=== PATIENT | female | born 1945 | race Caucasian/White ===

== ENCOUNTER 2017-03-09 06:17 | Day surgery (SDC) | payer OTHER, MEDICAID ==
[~2017-03-09] VITALS: Ht 30.5 cm; Wt 70.8 kg
[~2017-03-09 06:17] MED LIST: ACETAMINOPHEN 325 MG TAB PO PRN; ATOR1TAB21 PO; EYE5SOL OD; OMEP40CA2 PO
[2017-03-09] MEDS ORDERED: LIDOCAINE 2% W/EPIN INJ 20ML **PRES FREE As Ordered ONE (06:44)
[2017-03-09] MEDS ORDERED: mitoMYcin 0.2 MG/VIAL KIT FOR OPHTHALMIC USE (J7315 PER 0.2MG) As Ordered ONE (06:44)
[2017-03-09] MEDS ORDERED: POVIDONE-IODINE 5% OPHTH PREP SOL 30ML As Ordered ONE (06:45)
[2017-03-09] MEDS ORDERED: TOBRADEX OPHTH OINT 3.5 GM As Ordered ONE (06:45)
[2017-03-09] MEDS ORDERED: LIDOCAINE 3.5 % 1ML OPHTH TOPICAL GEL As Ordered ONE (06:55)
[2017-03-09] MEDS ORDERED: BSS with VANC/TOB/EPI for EYE CASES IR ONE (07:00)
[2017-03-09] MEDS ORDERED: PHENYLEPHRINE 2.5% OPHTH SOL 2ML XX ONE (07:00)
[2017-03-09] MEDS ORDERED: OFLOXACIN 0.3 % (OCUFLOX) OPTH SOL 5ML XX ONE (07:00)
[2017-03-09] MEDS ORDERED: TROPICAMIDE 1% OPHTH SOLN 2ML XX ONE (07:00)
[2017-03-09] MEDS ORDERED: CYCLOPENTOLATE 2% OPHTH SOLN 2ML BTL XX ONE (07:00)
[2017-03-09] MEDS ORDERED: PROPARACAINE 0.5% OPHTH SOL 15ML OD PRN (07:01)
[2017-03-09] MEDS ORDERED: fentaNYL 100 MCG/2 ML INJECTION (J3010) As Ordered ONE (07:12)
[2017-03-09] MEDS ORDERED: MIDAZOLAM INJ 2 MG/2 ML VIAL (J2250) As Ordered ONE (07:12)
[2017-03-09] MEDS ORDERED: LIDOCAINE 3.5 % 1ML OPHTH TOPICAL GEL OU ONE (07:30)
[2017-03-09] MEDS ORDERED: LIDOCAINE 1% MDV 20ML VIAL SC ONE (07:30)
[2017-03-09] MEDS ORDERED: LR 500 ML IV ONE (07:30)
[2017-03-09] MEDS ORDERED: HEALON DUET (HEALON 10MG/ML 0.55ML & HEALON ENDOCOAT 30MG/ML 0.85ML) As Ordered ONE (08:10)
[2017-03-09] MEDS ORDERED: AcetaZOLAMIDE 500 MG ER CAP PO ONE (09:00)
[2017-03-09] MEDS ORDERED: KETOROLAC 0.5% OPHTH SOLN OD ONE (09:00)
[2017-03-09] MEDS ORDERED: TRIMETHOBENZAMIDE 300 MG CAP PO PRN (09:00)
[2017-03-09 10:05] VITALS: BP 154/76
--- NOTE | 2017-03-10 07:22 | RO ---
DATE OF PROCEDURE: 03/09/2017 PREPROCEDURE DIAGNOSIS: Uncontrolled glaucoma. POSTPROCEDURE DIAGNOSIS: Uncontrolled glaucoma. PROCEDURE: Placement of the Ahmed valve, serial number [id number], lot number [id number]. SURGEON: Dr. Satish Tong. VEST MAKER: None. COMPLICATIONS: None. ANESTHESIA: ESTIMATED BLOOD LOSS: PROCEDURE IN DETAIL: After informed consent was obtained, it was decided to proceed with the Ahmed valve as opposed to the Express shunt with ECP considering patient was on Diamox and refractory glaucoma. After signing the consent, the patient was brought to the operating room and laid in supine position. The right eye was prepped and draped in a sterile fashion for ophthalmic surgery. Lid speculum was placed. #7-0 Vicryl suture was used to move the eye inferiorly and nasally following which subconjunctival peritomy was done for six clock hours between 9-o'clock and 3-o'clock. This dissection was carried out posteriorly in the superotemporal quadrant. Hemostasis was obtained as necessary. Cornea was marked 9 mm behind the limbus. Ahmed valve was primed and then sutured in place 9 mm away from the limbus with #10-0 Nylon sutures. Scleral tunnel was then created with a curved blade starting 6 mm behind the limbus and entering the anterior chamber. So the lens of the Ahmed valve tube was then trimmed to the right size. It was introduced through the scleral tunnel into the anterior chamber and secured in place using #10-0 Nylon suture. Conjunctiva was then closed using #8-0 Vicryl sutures and #10-0 Nylon sutures and was noted to be water tight. At the end of the case, a small amount of Healon was inserted. Eye was patched with TobraDex and patient returned to recovery room in stable condition after lid speculum was removed.
== END 2017-03-09 10:07 | disposition home or self-care (01) ==
LOC: M SDC 06:17
PROVIDERS: ATTEND Ophthalmology
DX: H40.9 Unspecified glaucoma (principal); E78.00 Pure hypercholesterolemia, unspecified; K21.9 Gastro-esophageal reflux disease without esophagitis; C44.90 Unspecified malignant neoplasm of skin, unspecified; Z79.899 Other long term (current) drug therapy; Z78.0 Asymptomatic menopausal state; Z90.710 Acquired absence of both cervix and uterus
CPT/HCPCS: 66183; J2250; J3010; J7315

== ENCOUNTER 2017-08-22 23:57 | Inpatient (IN) | payer MEDICAID, OTHER ==
[2017-08-23] MEDS ORDERED: ACETAMINOPHEN TAB 650MG DOSE (2X325MG) PO (01:45)
[2017-08-23] MEDS ORDERED: MOM 30ML SUSPENSION UDC PO (01:45)
[2017-08-23] MEDS ORDERED: MAALOX 30 ML SUSP *UDC PO (01:45)
[2017-08-23] MEDS ORDERED: traZODone 50 MG TAB PO (01:45)
[2017-08-23] MEDS: PALIPERIDONE 3 MG ER TAB (INVEGA) PO (21:10)
[2017-08-24 07:01] LABS: HEMOGLOBIN 11.3 g/dl (12.0-16.0); MEAN CORPUSCULAR HEMOGLOBIN 30.9 pg (27.0-33.0); MEAN CORPUSCULAR HGB CONC 34.2 g/dl (32.0-36.5); MEAN CORPUSCULAR VOLUME 90.2 fl (80.0-96.0); PLATELET COUNT, AUTOMATED 244 10^3/uL (150-450); RED BLOOD COUNT 3.66 10^6/uL (4.00-5.40); WHITE BLOOD COUNT 4.8 10^3/uL (4.0-10.0)
[2017-08-24 07:28] LABS: ALBUMIN 2.6 GM/DL (3.2-5.2); ALBUMIN/GLOBULIN RATIO 0.74 (1.00-1.93); ALKALINE PHOSPHATASE 88 U/L (45-117); ALT/SGPT 8 U/L (12-78); ANION GAP 10 MEQ/L (8-16); AST/SGOT 10 U/L (7-37); BILIRUBIN,TOTAL 0.7 MG/DL (0.2-1.0); BLOOD UREA NITROGEN 5 MG/DL (7-18); CALCIUM LEVEL 8.6 MG/DL (8.8-10.2); CARBON DIOXIDE LEVEL 26 MEQ/L (21-32); CHLORIDE LEVEL 106 MEQ/L (98-107); CREATININE FOR GFR 0.35 MG/DL (0.55-1.30); GLOMERULAR FILTRATION RATE > 60.0 (>39); GLUCOSE, FASTING 103 MG/DL (70-100); POTASSIUM SERUM 3.4 MEQ/L (3.5-5.1); SODIUM LEVEL 142 MEQ/L (136-145); TOTAL PROTEIN 6.1 GM/DL (6.4-8.2)
[2017-08-24] MEDS: PALIPERIDONE 3 MG ER TAB (INVEGA) PO ×2 (11:45→20:35)
[2017-08-25] MEDS: METOPROLOL TART 12.5 MG PER 1/2 TAB PO ×2 (09:00→20:43)
[2017-08-25] MEDS: PALIPERIDONE 3 MG ER TAB (INVEGA) PO ×2 (09:22→20:45)
[2017-08-25 09:48] LABS: HEMATOCRIT 32.5 % (36.0-47.0); HEMOGLOBIN 11.1 g/dl (12.0-16.0); MEAN CORPUSCULAR HEMOGLOBIN 31.3 pg (27.0-33.0); MEAN CORPUSCULAR HGB CONC 34.2 g/dl (32.0-36.5); MEAN CORPUSCULAR VOLUME 91.5 fl (80.0-96.0); PLATELET COUNT, AUTOMATED 235 10^3/uL (150-450); RED BLOOD COUNT 3.55 10^6/uL (4.00-5.40); WHITE BLOOD COUNT 6.3 10^3/uL (4.0-10.0)
[2017-08-25 10:13] LABS: ALBUMIN 2.7 GM/DL (3.2-5.2); ALBUMIN/GLOBULIN RATIO 0.79 (1.00-1.93); ALKALINE PHOSPHATASE 88 U/L (45-117); ALT/SGPT 10 U/L (12-78); ANION GAP 7 MEQ/L (8-16); AST/SGOT 13 U/L (7-37); BILIRUBIN,TOTAL 0.6 MG/DL (0.2-1.0); BLOOD UREA NITROGEN 6 MG/DL (7-18); CALCIUM LEVEL 8.5 MG/DL (8.8-10.2); CARBON DIOXIDE LEVEL 29 MEQ/L (21-32); CHLORIDE LEVEL 106 MEQ/L (98-107); CREATININE FOR GFR 0.46 MG/DL (0.55-1.30); GLOMERULAR FILTRATION RATE > 60.0 (>39); GLUCOSE, FASTING 105 MG/DL (70-100); POTASSIUM SERUM 3.7 MEQ/L (3.5-5.1); SODIUM LEVEL 142 MEQ/L (136-145); TOTAL PROTEIN 6.1 GM/DL (6.4-8.2)
[2017-08-25] MEDS ORDERED: traZODone 25MG PER 1/2 TABLET PO (11:15)
[2017-08-25] MEDS ORDERED: OMEPRAZOLE 20 MG CAP PO (12:15)
[2017-08-25] MEDS: miSOPROStol 100 MCG TAB (S0191) PO ×2 (16:56→20:45)
[2017-08-25] MEDS: BRINZOLAMIDE 1 % OPHTH SUSP (AZOPT) 10ML OU ×2 (16:56→20:45)
[2017-08-25] MEDS: ATORVASTATIN 20 MG TAB PO (16:56)
[2017-08-26 07:32] LABS: ANION GAP 8 MEQ/L (8-16); BLOOD UREA NITROGEN 8 MG/DL (7-18); CALCIUM LEVEL 8.4 MG/DL (8.8-10.2); CARBON DIOXIDE LEVEL 27 MEQ/L (21-32); CHLORIDE LEVEL 106 MEQ/L (98-107); CREATININE FOR GFR 0.34 MG/DL (0.55-1.30); GLOMERULAR FILTRATION RATE > 60.0 (>39); GLUCOSE, FASTING 88 MG/DL (70-100); POTASSIUM SERUM 3.8 MEQ/L (3.5-5.1); SODIUM LEVEL 141 MEQ/L (136-145)
[2017-08-26] MEDS: ATORVASTATIN 20 MG TAB PO (08:52)
[2017-08-26] MEDS: BRINZOLAMIDE 1 % OPHTH SUSP (AZOPT) 10ML OU ×2 (08:52→21:43)
[2017-08-26] MEDS: miSOPROStol 100 MCG TAB (S0191) PO ×3 (08:52→21:43)
[2017-08-26] MEDS: PALIPERIDONE 3 MG ER TAB (INVEGA) PO ×2 (08:52→21:43)
[2017-08-26] MEDS: METOPROLOL TART 12.5 MG PER 1/2 TAB PO ×2 (08:52→21:45)
[2017-08-26] MEDS: QUEtiapine FUMARATE 50 MG TAB PO (21:43)
[2017-08-27] MEDS: METOPROLOL TART 12.5 MG PER 1/2 TAB PO ×2 (09:47→20:33)
[2017-08-27] MEDS: miSOPROStol 100 MCG TAB (S0191) PO ×3 (09:47→20:34)
[2017-08-27] MEDS: ATORVASTATIN 20 MG TAB PO (09:47)
[2017-08-27] MEDS: BRINZOLAMIDE 1 % OPHTH SUSP (AZOPT) 10ML OU ×2 (09:47→20:33)
[2017-08-27] MEDS: QUEtiapine FUMARATE 100 MG TAB PO (20:32)
[2017-08-28] MEDS: miSOPROStol 100 MCG TAB (S0191) PO ×3 (08:21→21:41)
[2017-08-28] MEDS: ATORVASTATIN 20 MG TAB PO (08:21)
[2017-08-28] MEDS: METOPROLOL TART 12.5 MG PER 1/2 TAB PO ×2 (08:22→21:42)
[2017-08-28] MEDS: BRINZOLAMIDE 1 % OPHTH SUSP (AZOPT) 10ML OU ×2 (08:22→21:41)
[2017-08-28] MEDS: QUEtiapine FUMARATE 100 MG TAB PO (21:41)
[2017-08-29] MEDS: BRINZOLAMIDE 1 % OPHTH SUSP (AZOPT) 10ML OU ×2 (09:29→21:33)
[2017-08-29] MEDS: ATORVASTATIN 20 MG TAB PO (09:29)
[2017-08-29] MEDS: miSOPROStol 100 MCG TAB (S0191) PO ×3 (09:29→21:32)
[2017-08-29] MEDS: METOPROLOL TART 12.5 MG PER 1/2 TAB PO ×2 (09:37→21:33)
[2017-08-29] MEDS: QUEtiapine FUMARATE 50 MG TAB PO (21:32)
[2017-08-30] MEDS: METOPROLOL TART 12.5 MG PER 1/2 TAB PO ×2 (10:21→21:20)
[2017-08-30] MEDS: ATORVASTATIN 20 MG TAB PO (10:21)
[2017-08-30] MEDS: miSOPROStol 100 MCG TAB (S0191) PO ×3 (10:21→21:20)
[2017-08-30] MEDS: BRINZOLAMIDE 1 % OPHTH SUSP (AZOPT) 10ML OU ×2 (10:21→21:24)
[2017-08-31] MEDS: METOPROLOL TART 12.5 MG PER 1/2 TAB PO ×2 (08:21→20:45)
[2017-08-31] MEDS: ATORVASTATIN 20 MG TAB PO (08:21)
[2017-08-31] MEDS: miSOPROStol 100 MCG TAB (S0191) PO ×3 (08:21→20:46)
[2017-08-31] MEDS: BRINZOLAMIDE 1 % OPHTH SUSP (AZOPT) 10ML OU ×2 (08:21→20:44)
[2017-09-01] MEDS: METOPROLOL TART 12.5 MG PER 1/2 TAB PO ×2 (09:02→20:53)
[2017-09-01] MEDS: ATORVASTATIN 20 MG TAB PO (09:02)
[2017-09-01] MEDS: miSOPROStol 100 MCG TAB (S0191) PO ×3 (09:02→20:53)
[2017-09-01] MEDS: BRINZOLAMIDE 1 % OPHTH SUSP (AZOPT) 10ML OU ×2 (09:02→20:53)
[2017-09-01] MEDS: QUEtiapine FUMARATE 50 MG TAB PO (20:53)
[2017-09-02] MEDS: BRINZOLAMIDE 1 % OPHTH SUSP (AZOPT) 10ML OU ×2 (09:12→21:07)
[2017-09-02] MEDS: ATORVASTATIN 20 MG TAB PO (09:13)
[2017-09-02] MEDS: METOPROLOL TART 12.5 MG PER 1/2 TAB PO ×2 (09:13→21:08)
[2017-09-02] MEDS: miSOPROStol 100 MCG TAB (S0191) PO ×3 (09:13→21:08)
[2017-09-02] MEDS: QUEtiapine FUMARATE 50 MG TAB PO (21:08)
[2017-09-03] MEDS: miSOPROStol 100 MCG TAB (S0191) PO ×3 (09:56→21:22)
[2017-09-03] MEDS: BRINZOLAMIDE 1 % OPHTH SUSP (AZOPT) 10ML OU ×2 (09:56→21:26)
[2017-09-03] MEDS: ATORVASTATIN 20 MG TAB PO (09:56)
[2017-09-03] MEDS: METOPROLOL TART 12.5 MG PER 1/2 TAB PO ×2 (09:56→21:23)
[2017-09-03] MEDS: QUEtiapine FUMARATE 50 MG TAB PO (21:22)
[2017-09-04] MEDS: BRINZOLAMIDE 1 % OPHTH SUSP (AZOPT) 10ML OU ×2 (09:08→21:00)
[2017-09-04] MEDS: METOPROLOL TART 12.5 MG PER 1/2 TAB PO ×2 (09:09→21:00)
[2017-09-04] MEDS: ATORVASTATIN 20 MG TAB PO (09:10)
[2017-09-04] MEDS: miSOPROStol 100 MCG TAB (S0191) PO ×3 (09:10→21:00)
[2017-09-04] MEDS: QUEtiapine FUMARATE 50 MG TAB PO (21:00)
[2017-09-05 07:44] LABS: HEMATOCRIT 35.3 % (36.0-47.0); HEMOGLOBIN 11.7 g/dl (12.0-15.5); MEAN CORPUSCULAR HEMOGLOBIN 30.1 pg (27.0-33.0); MEAN CORPUSCULAR HGB CONC 33.1 g/dl (32.0-36.5); MEAN CORPUSCULAR VOLUME 90.7 fl (80.0-96.0); PLATELET COUNT, AUTOMATED 253 10^3/uL (150-450); RED BLOOD COUNT 3.89 10^6/uL (4.00-5.40); RED CELL DISTRIBUTION WIDTH 13.6 % (11.5-14.5); WHITE BLOOD COUNT 5.5 10^3/uL (4.0-10.0)
[2017-09-05] MEDS: miSOPROStol 100 MCG TAB (S0191) PO ×3 (08:07→23:34)
[2017-09-05] MEDS: BRINZOLAMIDE 1 % OPHTH SUSP (AZOPT) 10ML OU ×2 (08:07→23:35)
[2017-09-05] MEDS: ATORVASTATIN 20 MG TAB PO (08:08)
[2017-09-05] MEDS: METOPROLOL TART 12.5 MG PER 1/2 TAB PO ×2 (08:08→23:46)
[2017-09-05 08:18] LABS: ALBUMIN/GLOBULIN RATIO 0.91 (1.00-1.93); ALKALINE PHOSPHATASE 95 U/L (45-117); ALT/SGPT 10 U/L (12-78); ANION GAP 7 MEQ/L (8-16); AST/SGOT 12 U/L (7-37); BILIRUBIN,TOTAL 0.7 MG/DL (0.2-1.0); BLOOD UREA NITROGEN 8 MG/DL (7-18); CALCIUM LEVEL 8.7 MG/DL (8.8-10.2); CARBON DIOXIDE LEVEL 27 MEQ/L (21-32); CHLORIDE LEVEL 107 MEQ/L (98-107); GLOMERULAR FILTRATION RATE > 60.0 (>39); GLUCOSE, FASTING 91 MG/DL (70-100); POTASSIUM SERUM 3.8 MEQ/L (3.5-5.1); SODIUM LEVEL 141 MEQ/L (136-145); TOTAL PROTEIN 6.3 GM/DL (6.4-8.2)
[2017-09-05] MEDS: QUEtiapine FUMARATE 100 MG TAB PO (23:34)
[2017-09-06] MEDS: BRINZOLAMIDE 1 % OPHTH SUSP (AZOPT) 10ML OU ×2 (09:40→21:29)
[2017-09-06] MEDS: ATORVASTATIN 20 MG TAB PO (09:40)
[2017-09-06] MEDS: miSOPROStol 100 MCG TAB (S0191) PO ×3 (09:40→21:30)
[2017-09-06] MEDS: METOPROLOL TART 12.5 MG PER 1/2 TAB PO ×2 (09:40→21:00)
[2017-09-06] MEDS: QUEtiapine FUMARATE 100 MG TAB PO (21:30)
[2017-09-07] MEDS: ATORVASTATIN 20 MG TAB PO (09:42)
[2017-09-07] MEDS: BRINZOLAMIDE 1 % OPHTH SUSP (AZOPT) 10ML OU ×2 (09:42→20:59)
[2017-09-07] MEDS: METOPROLOL TART 12.5 MG PER 1/2 TAB PO ×2 (09:51→20:58)
[2017-09-07] MEDS: miSOPROStol 100 MCG TAB (S0191) PO ×3 (09:51→20:58)
[2017-09-07] MEDS: QUEtiapine FUMARATE 100 MG TAB PO (20:58)
[2017-09-08] MEDS: ATORVASTATIN 20 MG TAB PO (08:37)
[2017-09-08] MEDS: METOPROLOL TART 12.5 MG PER 1/2 TAB PO ×2 (08:37→20:24)
[2017-09-08] MEDS: BRINZOLAMIDE 1 % OPHTH SUSP (AZOPT) 10ML OU ×2 (08:37→20:24)
[2017-09-08] MEDS: miSOPROStol 100 MCG TAB (S0191) PO ×3 (08:37→20:23)
[2017-09-08] MEDS: QUEtiapine FUMARATE 100 MG TAB PO (20:23)
[2017-09-09] MEDS: ATORVASTATIN 20 MG TAB PO (09:17)
[2017-09-09] MEDS: BRINZOLAMIDE 1 % OPHTH SUSP (AZOPT) 10ML OU ×2 (09:17→20:31)
[2017-09-09] MEDS: METOPROLOL TART 12.5 MG PER 1/2 TAB PO ×2 (09:17→20:31)
[2017-09-09] MEDS: miSOPROStol 100 MCG TAB (S0191) PO ×3 (09:17→20:30)
[2017-09-09] MEDS: QUEtiapine FUMARATE 100 MG TAB PO (20:30)
[2017-09-10] MEDS: BRINZOLAMIDE 1 % OPHTH SUSP (AZOPT) 10ML OU ×2 (08:41→20:35)
[2017-09-10] MEDS: ATORVASTATIN 20 MG TAB PO (08:41)
[2017-09-10] MEDS: miSOPROStol 100 MCG TAB (S0191) PO ×3 (08:42→20:35)
[2017-09-10] MEDS: METOPROLOL TART 12.5 MG PER 1/2 TAB PO ×2 (08:42→20:35)
[2017-09-10] MEDS: QUEtiapine FUMARATE 100 MG TAB PO (20:35)
[2017-09-11] MEDS: ATORVASTATIN 20 MG TAB PO (09:12)
[2017-09-11] MEDS: METOPROLOL TART 12.5 MG PER 1/2 TAB PO ×2 (09:13→21:28)
[2017-09-11] MEDS: miSOPROStol 100 MCG TAB (S0191) PO ×3 (09:13→21:28)
[2017-09-11] MEDS: BRINZOLAMIDE 1 % OPHTH SUSP (AZOPT) 10ML OU ×2 (09:14→21:27)
[2017-09-11] MEDS: QUEtiapine FUMARATE 100 MG TAB PO (21:28)
[2017-09-12] MEDS: BRINZOLAMIDE 1 % OPHTH SUSP (AZOPT) 10ML OU ×2 (09:20→20:43)
[2017-09-12] MEDS: miSOPROStol 100 MCG TAB (S0191) PO ×3 (09:21→20:43)
[2017-09-12] MEDS: ATORVASTATIN 20 MG TAB PO (09:21)
[2017-09-12] MEDS: METOPROLOL TART 12.5 MG PER 1/2 TAB PO ×2 (09:21→20:43)
[2017-09-12] MEDS: QUEtiapine FUMARATE 100 MG TAB PO (20:43)
[2017-09-13] MEDS: BRINZOLAMIDE 1 % OPHTH SUSP (AZOPT) 10ML OU ×2 (08:48→21:06)
[2017-09-13] MEDS: ATORVASTATIN 20 MG TAB PO (08:48)
[2017-09-13] MEDS: METOPROLOL TART 12.5 MG PER 1/2 TAB PO ×2 (08:48→21:09)
[2017-09-13] MEDS: miSOPROStol 100 MCG TAB (S0191) PO ×3 (08:50→21:06)
[2017-09-13] MEDS: QUEtiapine FUMARATE 100 MG TAB PO (21:06)
[2017-09-14] MEDS: BRINZOLAMIDE 1 % OPHTH SUSP (AZOPT) 10ML OU ×2 (09:21→20:25)
[2017-09-14] MEDS: ATORVASTATIN 20 MG TAB PO (09:21)
[2017-09-14] MEDS: miSOPROStol 100 MCG TAB (S0191) PO ×3 (09:21→20:25)
[2017-09-14] MEDS: METOPROLOL TART 12.5 MG PER 1/2 TAB PO ×2 (09:22→20:25)
[2017-09-14] MEDS: TUBERCULIN PPD 5 UNITS/0.1 ML ID ×2 (10:15→12:00)
[2017-09-14] MEDS: **PENDING PPD ENTRY XX (12:15)
[2017-09-14] MEDS: QUEtiapine FUMARATE 100 MG TAB PO (20:25)
[2017-09-15] MEDS: BRINZOLAMIDE 1 % OPHTH SUSP (AZOPT) 10ML OU ×2 (09:19→21:32)
[2017-09-15] MEDS: ATORVASTATIN 20 MG TAB PO (09:19)
[2017-09-15] MEDS: miSOPROStol 100 MCG TAB (S0191) PO ×3 (09:19→21:33)
[2017-09-15] MEDS: METOPROLOL TART 12.5 MG PER 1/2 TAB PO ×2 (09:19→21:32)
[2017-09-15] MEDS: QUEtiapine FUMARATE 100 MG TAB PO (21:32)
[2017-09-16] MEDS: ATORVASTATIN 20 MG TAB PO (09:06)
[2017-09-16] MEDS: miSOPROStol 100 MCG TAB (S0191) PO ×3 (09:13→21:46)
[2017-09-16] MEDS: BRINZOLAMIDE 1 % OPHTH SUSP (AZOPT) 10ML OU ×2 (09:14→21:46)
[2017-09-16] MEDS: METOPROLOL TART 12.5 MG PER 1/2 TAB PO ×2 (09:14→21:48)
[2017-09-16] MEDS ORDERED: PPD DOCUMENTATION ENTRY MISC XX (10:00)
[2017-09-16] MEDS: PPD DOCUMENTATION ENTRY MISC XX (12:29)
[2017-09-16] MEDS: QUEtiapine FUMARATE 100 MG TAB PO (21:46)
[2017-09-17] MEDS: miSOPROStol 100 MCG TAB (S0191) PO ×3 (08:50→20:56)
[2017-09-17] MEDS: METOPROLOL TART 12.5 MG PER 1/2 TAB PO ×2 (08:50→20:58)
[2017-09-17] MEDS: BRINZOLAMIDE 1 % OPHTH SUSP (AZOPT) 10ML OU ×2 (08:50→20:56)
[2017-09-17] MEDS: ATORVASTATIN 20 MG TAB PO (08:50)
[2017-09-17] MEDS: QUEtiapine FUMARATE 100 MG TAB PO (20:56)
[2017-09-18] MEDS: miSOPROStol 100 MCG TAB (S0191) PO ×3 (09:13→20:20)
[2017-09-18] MEDS: METOPROLOL TART 12.5 MG PER 1/2 TAB PO ×2 (09:13→20:20)
[2017-09-18] MEDS: ATORVASTATIN 20 MG TAB PO (09:13)
[2017-09-18] MEDS: BRINZOLAMIDE 1 % OPHTH SUSP (AZOPT) 10ML OU ×2 (09:13→20:19)
[2017-09-18] MEDS: QUEtiapine FUMARATE 100 MG TAB PO (20:19)
[2017-09-19] MEDS: miSOPROStol 100 MCG TAB (S0191) PO ×3 (09:05→20:56)
[2017-09-19] MEDS: BRINZOLAMIDE 1 % OPHTH SUSP (AZOPT) 10ML OU ×2 (09:05→20:55)
[2017-09-19] MEDS: ATORVASTATIN 20 MG TAB PO (09:05)
[2017-09-19] MEDS: METOPROLOL TART 12.5 MG PER 1/2 TAB PO ×2 (09:05→20:56)
[2017-09-19] MEDS: QUEtiapine FUMARATE 100 MG TAB PO (20:55)
[2017-09-20] MEDS: miSOPROStol 100 MCG TAB (S0191) PO ×3 (08:41→21:21)
[2017-09-20] MEDS: METOPROLOL TART 12.5 MG PER 1/2 TAB PO ×2 (08:41→21:00)
[2017-09-20] MEDS: BRINZOLAMIDE 1 % OPHTH SUSP (AZOPT) 10ML OU ×2 (08:42→21:21)
[2017-09-20] MEDS: ATORVASTATIN 20 MG TAB PO (09:16)
[2017-09-20] MEDS: QUEtiapine FUMARATE 100 MG TAB PO (21:21)
[2017-09-21] MEDS: ATORVASTATIN 20 MG TAB PO (10:49)
[2017-09-21] MEDS: miSOPROStol 100 MCG TAB (S0191) PO ×3 (10:49→21:15)
[2017-09-21] MEDS: METOPROLOL TART 12.5 MG PER 1/2 TAB PO ×2 (10:49→21:16)
[2017-09-21] MEDS: BRINZOLAMIDE 1 % OPHTH SUSP (AZOPT) 10ML OU ×2 (10:51→21:16)
[2017-09-21] MEDS: QUEtiapine FUMARATE 100 MG TAB PO (21:15)
[2017-09-22] MEDS: miSOPROStol 100 MCG TAB (S0191) PO ×3 (10:36→20:16)
[2017-09-22] MEDS: BRINZOLAMIDE 1 % OPHTH SUSP (AZOPT) 10ML OU ×2 (10:36→20:16)
[2017-09-22] MEDS: METOPROLOL TART 12.5 MG PER 1/2 TAB PO ×2 (10:36→20:17)
[2017-09-22] MEDS: ATORVASTATIN 20 MG TAB PO (10:36)
[2017-09-22] MEDS: QUEtiapine FUMARATE 100 MG TAB PO (20:16)
[2017-09-23] MEDS: METOPROLOL TART 12.5 MG PER 1/2 TAB PO ×2 (08:20→20:04)
[2017-09-23] MEDS: ATORVASTATIN 20 MG TAB PO (08:20)
[2017-09-23] MEDS: miSOPROStol 100 MCG TAB (S0191) PO ×3 (08:20→20:04)
[2017-09-23] MEDS: BRINZOLAMIDE 1 % OPHTH SUSP (AZOPT) 10ML OU ×2 (08:20→20:04)
[2017-09-23] MEDS: QUEtiapine FUMARATE 100 MG TAB PO (20:04)
[2017-09-24] MEDS: METOPROLOL TART 12.5 MG PER 1/2 TAB PO ×2 (08:49→20:08)
[2017-09-24] MEDS: ATORVASTATIN 20 MG TAB PO (08:49)
[2017-09-24] MEDS: miSOPROStol 100 MCG TAB (S0191) PO ×3 (08:49→20:08)
[2017-09-24] MEDS: BRINZOLAMIDE 1 % OPHTH SUSP (AZOPT) 10ML OU ×2 (09:11→20:08)
[2017-09-24] MEDS: QUEtiapine FUMARATE 100 MG TAB PO (20:08)
[2017-09-25] MEDS: ATORVASTATIN 20 MG TAB PO (08:41)
[2017-09-25] MEDS: METOPROLOL TART 12.5 MG PER 1/2 TAB PO ×2 (08:42→21:12)
[2017-09-25] MEDS: BRINZOLAMIDE 1 % OPHTH SUSP (AZOPT) 10ML OU ×2 (08:42→21:12)
[2017-09-25] MEDS: miSOPROStol 100 MCG TAB (S0191) PO ×3 (08:42→21:12)
[2017-09-25] MEDS: QUEtiapine FUMARATE 100 MG TAB PO (21:12)
[2017-09-26] MEDS: BRINZOLAMIDE 1 % OPHTH SUSP (AZOPT) 10ML OU (08:07)
[2017-09-26] MEDS: miSOPROStol 100 MCG TAB (S0191) PO (08:07)
[2017-09-26] MEDS: METOPROLOL TART 12.5 MG PER 1/2 TAB PO (08:07)
[2017-09-26] MEDS: ATORVASTATIN 20 MG TAB PO (08:07)
== END 2017-09-26 13:10 | disposition home or self-care (01) | DRG 750 ==
LOC: M ED 23:57 → M ED INP 08-23 01:32 → M PSY 08-23 02:58
DX: F20.9 Schizophrenia, unspecified (principal); F01.51 Vascular dementia, unspecified severity, with behavioral disturbance; K22.70 Barrett's esophagus without dysplasia; K21.9 Gastro-esophageal reflux disease without esophagitis; E89.0 Postprocedural hypothyroidism; H40.9 Unspecified glaucoma; I10 Essential (primary) hypertension; E78.5 Hyperlipidemia, unspecified; Z79.899 Other long term (current) drug therapy; Z90.710 Acquired absence of both cervix and uterus; Z98.49 Cataract extraction status, unspecified eye